=== PATIENT | female | born 1955 | race Caucasian/White ===

== ENCOUNTER 2019-09-05 09:51 | Outpatient (CLI) | payer BC ==
[2019-09-05] MEDS ORDERED: AMLO10TA8 PO (10:22)
[2019-09-05] MEDS ORDERED: THYR60TA PO (10:22)
[2019-09-05] MEDS ORDERED: TIMO1DRO2 RIGHTEYE (10:22)
[2019-09-05] MEDS ORDERED: SITA50TA PO (10:22)
[2019-09-05] MEDS ORDERED: AMIT150T PO (10:22)
[2019-09-05] MEDS ORDERED: HAIR SKIN NAIL VIT PO (14:07)
[2019-09-05] MEDS ORDERED: [UNRECOGNIZED DRUG - OTHER] PO (14:07)
[2019-09-05] MEDS ORDERED: [UNRECOGNIZED DRUG - OTHER] (14:07)
[2019-09-05] MEDS ORDERED: stool softner PO (14:07)
[2019-09-05] MEDS ORDERED: EYE (14:07)
[2019-09-05] MEDS ORDERED: VIT PO (14:07)
[2019-09-05] MEDS ORDERED: estrogen cream TP (14:07)
[2019-09-05] MEDS ORDERED: CINN500C2 PO (14:07)
[2019-09-05] MEDS ORDERED: potassium PO (14:07)
[2019-09-05] MEDS ORDERED: VIT1TABL32 PO (14:07)
[2019-09-05] MEDS ORDERED: [UNRECOGNIZED DRUG - OTHER] PO (14:07)
[2019-09-05] MEDS ORDERED: ASPI-496 PO (14:07)
[2019-09-05] MEDS ORDERED: fish oil PO (14:07)
[2019-09-05] MEDS ORDERED: [UNRECOGNIZED DRUG - OTHER] PO (14:07)
== END 2019-09-05 23:59 | disposition home or self-care (01) ==
LOC: STAR 09:51
PROVIDERS: ATTEND Obstetrics & Gynecology Female Pelvic Medicine and Reconstructive Surgery
DX: Z01.818 Encounter for other preprocedural examination (principal); N81.10 Cystocele, unspecified; R33.9 Retention of urine, unspecified
CPT/HCPCS: 36415; 80053; 93005

== ENCOUNTER 2019-10-01 05:35 | Day surgery (SDC) | payer BC ==
[2019-09-05 11:22] LABS: ALANINE AMINOTRANSFERASE 38 U/L (12-78); ALBUMIN 3.9 g/dL (3.4-5.0); ANION GAP 7 mmol/L (5-15); CALCIUM 9.6 mg/dL (8.5-10.1); CHLORIDE 107 mmol/L (98-107)
[2019-09-05 11:25] LABS: ALKALINE PHOSPHATASE 119 U/L (45-117); BILIRUBIN,TOTAL 0.4 mg/dL (0.2-1.0); CREATININE 0.81 mg/dL (0.55-1.02)
[~2019-10-01] VITALS: Ht 154.9 cm; Wt 68.2 kg
[~2019-10-01 05:35] MED LIST: AMIT150T PO; AMLO10TA8 PO; ASPI-496 PO; CINN500C2 PO; EYE; HAIR SKIN NAIL VIT PO; SITA50TA PO; THYR60TA PO; TIMO1DRO2 RIGHTEYE; VIT PO; VIT1TABL32 PO; [UNRECOGNIZED DRUG - OTHER]; [UNRECOGNIZED DRUG - OTHER] PO; [UNRECOGNIZED DRUG - OTHER] PO; [UNRECOGNIZED DRUG - OTHER] PO; estrogen cream TP; fish oil PO; potassium PO; stool softner PO
[2019-10-01] MEDS ORDERED: LACTATED RINGERS 1,000 ML IV SCH ×2 (06:19→10:41)
[2019-10-01 06:22] VITALS: BP 139/86
[2019-10-01] MEDS ORDERED: BUPIVACAINE/PF 0.25% ONE (06:43)
[2019-10-01] MEDS ORDERED: INDIGO CARMINE 0.8%, 5ML ONE (06:44)
[2019-10-01] MEDS ORDERED: NEOMY/POLYMYXIN B GU IRR. 1 ML ONE (06:44)
[2019-10-01] MEDS ORDERED: EPINEPHRINE 1 MG/ML, 1ML ONE (06:44)
[2019-10-01] MEDS ORDERED: MIDAZOLAM 1 MG/ML, 2ML ONE (07:11)
[2019-10-01] MEDS ORDERED: DEXAMETHASONE 4 MG/ML, 1ML ONE (07:12)
[2019-10-01] MEDS ORDERED: CEFAZOLIN 1,000 MG ONE (07:12)
[2019-10-01] MEDS ORDERED: ONDANSETRON 2MG/ML, 2ML ONE (07:12)
[2019-10-01] MEDS ORDERED: GLYCOPYRROLATE 0.2MG/1ML, 5ML ONE (07:12)
[2019-10-01] MEDS ORDERED: FENTANYL PF 250 MCG/5ML ONE (07:12)
[2019-10-01] MEDS ORDERED: NEOSTIGMINE 1 MG/ML, 10ML ONE (07:12)
[2019-10-01] MEDS ORDERED: SUCCINYLCHOLINE 20 MG/ML, 10ML ONE (07:12)
[2019-10-01] MEDS ORDERED: ROCURONIUM 10MG/ML,5ML ONE (07:12)
[2019-10-01] MEDS ORDERED: PROPOFOL 10 MG/ML, 20ML ONE (07:12)
[2019-10-01] MEDS ORDERED: LIDOCAINE-MPF 2% ,5ML ONE (07:13)
[2019-10-01] MEDS ORDERED: SODIUM CHLORIDE 0.9% PF 10ML ONE (07:14)
[2019-10-01] MEDS ORDERED: HYDROmorphone 2 MG/ML, 1ML IVPush PRN (07:30)
[2019-10-01] MEDS ORDERED: ONDANSETRON 2MG/ML, 2ML IV PRN (07:30)
[2019-10-01] MEDS ORDERED: hydrALAzine 20 MG/ML, 1ML IV PRN (07:30)
[2019-10-01] MEDS ORDERED: EPHEDRINE 50 MG/ML, 1ML IVPush PRN (07:30)
[2019-10-01] MEDS ORDERED: OXYcodone 5 MG/5 ML ORAL.SOL UDC PO PRN (07:30)
[2019-10-01] MEDS ORDERED: MEPERIDINE/PF 25MG/ML,1ML IVPush PRN (07:30)
[2019-10-01] MEDS ORDERED: GABAPENTIN 300 MG CAPSULE PO ONE (07:30)
[2019-10-01] MEDS ORDERED: PROMETHAZINE 25 MG/ML, 1ML IV PRN (07:30)
[2019-10-01] MEDS ORDERED: ACETAMINOPHEN 500 MG TABLET PO ONE (07:30)
[2019-10-01] MEDS ORDERED: FENTANYL PF 100 MCG/2ML IV PRN (07:30)
[2019-10-01] MEDS ORDERED: LABETALOL 5MG/ML, 20ML IV PRN (07:30)
[2019-10-01] MEDS ORDERED: KETOROLAC 30 MG/1 ML ONE ×2 (07:44)
[2019-10-01] MEDS ORDERED: CEFOTETAN PMX 2GM/50ML 50 ML ONE (09:19)
[2019-10-01] MEDS ORDERED: HYDROcodone/APAP 5/325 TABLET PO PRN (11:00)
[2019-10-01] MEDS ORDERED: PROMETHAZINE 12.5 MG SUPP PR ONE (11:00)
[2019-10-01] MEDS ORDERED: ONDANSETRON 2MG/ML, 2ML IVPush PRN (11:00)
== END 2019-10-01 14:10 | disposition home or self-care (01) ==
LOC: OUT 05:35
PROVIDERS: ATTEND Obstetrics & Gynecology Female Pelvic Medicine and Reconstructive Surgery
DX: N99.3 Prolapse of vaginal vault after hysterectomy (principal); N99.71 Accidental puncture and laceration of a genitourinary system organ or structure during a genitourinary system procedure; N39.46 Mixed incontinence; N73.6 Female pelvic peritoneal adhesions (postinfective); I10 Essential (primary) hypertension; E78.5 Hyperlipidemia, unspecified; E11.9 Type 2 diabetes mellitus without complications; E03.9 Hypothyroidism, unspecified; Z79.82 Long term (current) use of aspirin; Z79.899 Other long term (current) drug therapy; Z88.0 Allergy status to penicillin; Z88.2 Allergy status to sulfonamides
CPT/HCPCS: 57260; 57288; 82962; C1771; J0171; J0330; J0690; J1100; J1885; J2250; J2405; J2704; J2710; J3010; J3490; S2900; 36415; 80053